=== PATIENT | female | born 2000 | race Caucasian/White ===

== ENCOUNTER 2022-02-02 21:43 | Emergency (ER) | payer OTHER ==
[~2022-02-02] VITALS: Ht 167.6 cm; Wt 63.5 kg
[~2022-02-02 21:43] MED LIST: LOPE2EL PO; PROM12.5S PR; RXPROM12.S PR; RXSULTRISU PO; SULTRIEL PO
[2022-02-04 09:08] LABS: HIV AB/P24 AG SCREEN Non Reactive (Non Reactive)
[2022-02-04 11:08] LABS: HBSAG SCREEN Negative (Negative); HCV AB 0.1 (0.0-0.9); HEP A AB, IGM Negative (Negative); HEP B CORE AB, IGM Negative (Negative)
== END 2022-02-02 23:10 | disposition home or self-care (01) ==
LOC: ER 21:43
PROVIDERS: Emergency Medicine
DX: S50.812A Abrasion of left forearm, initial encounter (principal); W50.4XXA Accidental scratch by another person, initial encounter; Y99.0 Civilian activity done for income or pay; Z57.8 Occupational exposure to other risk factors
CPT/HCPCS: 80074; 87389; 99283

== ENCOUNTER 2022-10-25 17:59 | Emergency (ER) | payer OTHER ==
[~2022-10-25] VITALS: Ht 167.6 cm; Wt 59.0 kg
[2022-10-26 11:09] LABS: HIV AB/P24 AG SCREEN Non Reactive (Non Reactive)
[2022-10-27 05:11] LABS: HCV ANTIBODY Non Reactive (Non Reactive)
== END 2022-10-25 19:30 | disposition home or self-care (01) ==
LOC: ER 17:59
PROVIDERS: Student in an Organized Health Care Education/Training Program
DX: Z77.21 Contact with and (suspected) exposure to potentially hazardous body fluids (principal); Y99.0 Civilian activity done for income or pay
CPT/HCPCS: 36415; 84460; 86317; 86703; 86803; 87340; 87389; 99283